=== PATIENT | female | born 1985 | race Caucasian/White ===

== ENCOUNTER 2018-08-30 15:06 | Inpatient (IN) | payer MEDICARE, SELFPAY ==
[~2018-08-30] VITALS: Ht 162.6 cm; Wt 139.1 kg
[2018-08-30] MEDS ORDERED: BUSP5TA PO (15:22)
[2018-08-30] MEDS ORDERED: PROG1CAP8 PO (15:22)
[2018-08-30] MEDS ORDERED: ARIS1064 IM (15:22)
[2018-08-30] MEDS ORDERED: LEXA1TAB PO (15:22)
[2018-08-30 15:44] LABS: HEMATOCRIT 19.1 % (36.0-47.0); MEAN CORPUSCULAR HGB CONC 29.8 g/dl (32.0-36.5); MEAN CORPUSCULAR VOLUME 83.8 fl (80.0-96.0); PLATELET COUNT, AUTOMATED 493 10^3/uL (150-450); RED BLOOD COUNT 2.28 10^6/uL (4.00-5.40); WHITE BLOOD COUNT 14.4 10^3/uL (4.0-10.0)
[2018-08-30 15:48] LABS: HEMOGLOBIN 5.7 g/dl (12.0-15.5)
[2018-08-30 16:10] LABS: ALBUMIN 3.2 GM/DL (3.2-5.2); ALT/SGPT 19 U/L (12-78); BILIRUBIN,TOTAL < 0.1 MG/DL (0.2-1.0); BLOOD UREA NITROGEN 7 MG/DL (7-18); CALCIUM LEVEL 8.4 MG/DL (8.5-10.1); CARBON DIOXIDE LEVEL 21 MEQ/L (21-32); CHLORIDE LEVEL 113 MEQ/L (98-107); GLOMERULAR FILTRATION RATE > 60.0 (>60); GLUCOSE, FASTING 106 MG/DL (70-100); SODIUM LEVEL 143 MEQ/L (136-145); TOTAL PROTEIN 6.3 GM/DL (6.4-8.2)
[2018-08-30] MEDS ORDERED: NS 1,000 ML IV ONE (16:15)
[2018-08-30 16:19] LABS: EOSINOPHILS 1 % (0-5); HCG, SERUM QUALITATIVE NEGATIVE (NEGATIVE); LYMPHOCYTES 35 % (16-52); MONOCYTES 1 % (0-8); NEUTROPHILS 60 % (35-75)
[2018-08-30] MEDS ORDERED: PROG-34 PO (16:20)
[2018-08-30 16:21] LABS: HYPOCHROMASIA 3+; MICROCYTOSIS 2+; PLATELET ESTIMATE NORMAL (NORMAL); POLYCHROMASIA 1+
[2018-08-30] MEDS ORDERED: ALLE12TA31 PO (16:22)
[2018-08-30] MEDS ORDERED: VITA-144 PO (16:22)
[2018-08-30] MEDS ORDERED: OYST1TAB PO (16:22)
[2018-08-30] MEDS ORDERED: MAGN400T2 PO (16:22)
--- NOTE | 2018-08-30 17:25 | REP ---
Portable chest x-ray: Single view. History: Near-syncope. No comparison views. Findings: The lungs are well inflated and clear. Pleural angles are sharp. EKG electrodes are seen. Pulmonary vasculature is not increased. No bony abnormality is appreciated. Impression: Negative portable chest x-ray. Electronically Signed by Wellington Valdez MD 08/31/2018 07:58 A
[2018-08-30] MEDS ORDERED: MOM 30ML SUSPENSION UDC PO PRN (17:30)
[2018-08-30 18:55] VITALS: BP 136/85
--- NOTE | 2018-08-30 20:56 | HPEPDOC ---
[facility] Medical History & Physical Date of Admission Aug 30, 2018 Date of Service: Aug 30, 2018 Attending Physician: CHRISTIN MONTENEGRO MD History and Physical CHIEF COMPLAINT: Dizziness HISTORY OF PRESENT ILLNESS: Mary is a 33-year-old female who presented to the emergency department today with a chief complaint of dizziness beginning at 1 PM. Patient was outside her home at the time and had to sit down. After 1.5 hours of sustained dizziness, she called EMS. Her dizziness has improved a little since presentation, but is still present. Rest, current blood transfusions, and liquid consumption have all helped her symptoms. Physical exertion and standing up from a seated or lying position exacerbate her symptoms. Patient has an accompanying headache located in the occiput and upper cervical region. She has had these symptoms since March 2018, during which time she has had daily vaginal bleeding with accompanying dizziness. She states that today's dizziness is the worst she has had. The daily vaginal bleeding soaks through a tampon and onto a pad. She states that she is not sexually active and is unsure of her last menstrual period due to daily bleeding since March. She has never previously been . In the emergency department, her vitals were stable and her orthostats were negative. CBC showed a hemoglobin of 5.7. She was evaluated by gynecology (Dr. Winston) in the ED, who recommended patient be hemodynamically stabilized and will follow-up with her on an outpatient basis for further evaluation. Then the hospitalist team was called for admission. PAST MEDICAL HISTORY: 1. Bipolar disorder. 2. Anxiety 3. GERD. PAST SURGICAL HISTORY: 1. Cholecystectomy 2011. 2. Tonsillectomy, 1994. SOCIAL HISTORY: Marital status: Single Resides in: [facility] area after recently moving from [place], [place] Children:, None Tobacco use: Cigarettes one pack a day for the last 4 years ETOH: None Illicit drug use: None FAMILY HISTORY: Siblings: Asthma, sister. Insulin-dependent diabetes mellitus, brother ALLERGIES: Please see below. REVIEW OF SYSTEMS: CONSTITUTIONAL: Endorses weakness, fatigue, fever and decreased appetite. Denies weight change, night sweats, chills or heat/cold intolerance. HEENT: Denies diplopia, blurry vision, hearing loss, tinnitus, rhinorrhea, sore throat. CARDIOVASCULAR:, Denies chest pain, chest pressure, palpitations prior to presentation, orthopnea. RESPIRATORY:, Endorses dyspnea on exertion. Denies cough GASTROINTESTINAL: Denies abdominal pain, nausea, vomiting, constipation, diarrhea or blood in the stool. GENITOURINARY:Denies dysuria, hematuria, increased urinary frequency. Gynecological: Endorses vaginal bleeding over the last 5 months and dysmenorrhea SKIN: Denies rashes MUSCULOSKELETAL: Denies decrease in muscle strength or bone pain. NEUROLOGICAL: Endorses numbness in fingers and toes bilaterally. PSYCHIATRIC: Denies recent issues with mood. HEMATOLOGIC/LYMPHATIC: Endorses recent easy bleeding. Denies easy bruising or family history of bleeding disorders HOME MEDICATIONS: Please see below. PHYSICAL EXAMINATION: VITAL SIGNS: Temperature 99.1, pulse, 98, respiratory rate 16, blood pressure 125/60, pulse oximetry 99% % on room air. GENERAL APPEARANCE: Calm, in no acute distress, sitting upright on bed. HEENT: Normocephalic, atraumatic. Patient wears eyeglasses for nearsightedness, PERRLA, EOMI nares patent. Poor dentition. Hirsutism of chin CARDIOVASCULAR:. Mildly tachycardic . Normal S1, S2, regular rhythm, no murmurs or rubs, No carotid bruits LUNGS: Clear to auscultation bilaterally, anteriorly and posteriorly, adequate air movement with no wheezing or rhonchi. ABDOMEN:. Abdominal striae present. Soft, nontender, nondistended. Bowel sounds present in all 4 quadrants MUSCULOSKELETAL: 5 out of 5 muscle strength testing upper extremity and lower extremity bilaterally. EXTREMITIES: Lower extremity pitting edema bilaterally, 2+ carotid, radial and posterior tibial pulses bilaterally. Hirsutism of lower extremities b/l NEUROLOGICAL:. Cranial nerves II through XII grossly intact. Sensation to light touch intact upper extremity and lower extremity bilaterally. PSYCHIATRIC: Appropriate mood and affect. LABORATORY DATA: See below. IMAGING: Portable chest x-ray: Negative portable chest x-ray MICROBIOLOGY: Please see below. ASSESSMENT: 33-year-old female with pertinent past medical history of vaginal bleeding for the past 5 months presented today for dizziness. She will be admitted and managed for the following problems 1. Symptomatic acute blood loss anemia likely secondary to vaginal bleeding. -Gynecology (Dr. Winston) saw patient in ED and once she is hemodynamically stable Dr. Winston will follow-up on an outpatient basis Patient had a hemoglobin of 5.7, and was subsequently given 2 units of blood. After 2 units are completely transfused, we will recheck hemoglobin. 2. Bipolar disorder -Continue with outpatient medication of aristada and Lexapro 3. Anxiety -Continue with outpatient medication of buspirone 4. GERD -Continue with outpatient medication of omeprazole I saw and evaluated the patient. I agree with the findings and plan of care as documented in the above note Vital Signs Vital Signs Date Time Temp Pulse Resp B/P (MAP) Pulse Ox O2 Delivery O2 Flow Rate FiO2 08/30/18 18:50 99.1 08/30/18 18:39 16 125/60 (81) 08/30/18 18:30 98 99 08/30/18 18:00 Room Air Laboratory Data Labs 24H Laboratory Tests 2 08/30/18 15:36: Nucleated Red Blood Cells % (auto) 0.4H, Neutrophils 60, Band Neutrophils 3, Lymphocytes (Manual) 35, Monocytes (Manual) 1, Eosinophils (Manual) 1, Platelet Estimate NORMAL, Polychromasia 1+, Hypochromasia 3+, Microcytosis 2+, Anion Gap 9, Glomerular Filtration Rate > 60.0, Blood Urea Nitrogen 7, Creatinine 0.70, Sodium Level 143, Potassium Level 4.0, Chloride Level 113H, Carbon Dioxide Level 21, Calcium Level 8.4L, Aspartate Amino Transf (AST/SGOT) 15, Alanine Aminotransferase (ALT/SGPT) 19, Alkaline Phosphatase 67, Total Bilirubin < 0.1L, Total Protein 6.3L, Albumin 3.2, Albumin/Globulin Ratio 1.03, Human Chorionic Gonadotropin, Qual NEGATIVE CBC/BMP Laboratory Tests 08/30/18 15:36 Red Blood Count 2.28 L, Mean Corpuscular Volume 83.8, Mean Corpuscular Hemoglobin 25.0 L, Mean Corpuscular Hemoglobin Concent 29.8 L, Red Cell Distribution Width 15.6 H, Calcium Level 8.4 L, Aspartate Amino Transf (AST/SG OT) 15, Alanine Aminotransferase (ALT/SGPT) 19, Alkaline Phosphatase 67, Total Bilirubin < 0.1 L, Total Protein 6.3 L, Albumin 3.2 Home Medications Scheduled Aripiprazole Lauroxil (Aristada) 1,064 Mg/3.9 Ml Suser.syr, 3.9 ML IM [id number] Buspirone HCl (Buspirone HCl) 5 Mg Tablet, 5 MG PO BID Calcium Carbonate (Calcium) 500 Mg Tablet, 500 MG PO QHS Cholecalciferol (Vitamin D3) (Vitamin D3) 1,000 Unit Tablet, 2,000 UNIT PO QHS Escitalopram Oxalate (Lexapro) 10 Mg Tablet, 10 MG PO DAILY Ferrous Sulfate (Ferrous Sulfate) 325 Mg Tablet, 325 MG PO BID Magnesium Oxide (Magnesium Oxide) 400 Mg Tablet, 400 MG PO QHS [Progesterone] , 10 MG PO QPM PATIENT STATES THAT SHE TAKES PROGESTERONE 10MG WITH DINNER. [facility] DOES NOT HAVE A HISTORY OF THIS BEING FILLED. Scheduled PRN Fexofenadine/Pseudoephedrine (Lala-D 12 Hour Tablet) 1 Each Tab.er.12h, 1 TAB PO BID PRN for CONGESTION Allergies Coded Allergies: No Known Allergies (Unverified , 08/30/18) MELISSA RUVALCABA PGY-1 Aug 30, 2018 20:50 CHRISTIN MONTENEGRO MD Sep 01, 2018 11:08
[2018-08-30 21:33] LABS: INR 1.12; PROTHROMBIN TIME 14.1 SECONDS (11.8-14.0)
[2018-08-30 21:34] LABS: PARTIAL THROMBOPLASTIN TIME 27.6 SECONDS (25.0-38.4)
[2018-08-30] MEDS: MAGNESIUM OXIDE 400 MG TAB (MAG-OX) PO SCH (22:09)
[2018-08-30] MEDS: OYSTER SHELL CALCIUM 500 MG TAB PO SCH (22:09)
[2018-08-30] MEDS: VITAMIN D 1,000 INTERNATIONAL UNITS TABLET PO SCH (22:09)
[2018-08-30] MEDS: busPIRone 5 MG TAB PO SCH (22:09)
[2018-08-30] MEDS: ACETAMINOPHEN TAB 650MG DOSE (2X325MG) PO PRN (22:10)
[2018-08-31 03:12] LABS: HEMATOCRIT 21.7 % (36.0-47.0)
[2018-08-31 03:16] LABS: HEMOGLOBIN 6.8 g/dl (12.0-15.5)
[2018-08-31 06:00] VITALS: BP 131/74
[2018-08-31 06:50] VITALS: BP_SYST 117; BP_SYST 134; BP_SYST 145; BP_DIAS 63; BP_DIAS 84; BP_DIAS 89
--- NOTE | 2018-08-31 07:41 | ECGEPIP ---
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
[2018-08-31] MEDS: ESCITALOPRAM OXALATE 10 MG TAB (LEXAPRO) PO SCH (08:04)
[2018-08-31] MEDS: busPIRone 5 MG TAB PO SCH ×2 (08:04→22:14)
[2018-08-31] MEDS: ACETAMINOPHEN TAB 650MG DOSE (2X325MG) PO PRN (08:05)
[2018-08-31 13:57] VITALS: BP_SYST 133; BP_SYST 165; BP_DIAS 76; BP_DIAS 80
[2018-08-31 14:00] VITALS: BP 161/86
[2018-08-31 14:29] LABS: HEMATOCRIT 26.3 % (36.0-47.0); HEMOGLOBIN 8.2 g/dl (12.0-15.5); MEAN CORPUSCULAR HEMOGLOBIN 26.6 pg (27.0-33.0); MEAN CORPUSCULAR HGB CONC 31.2 g/dl (32.0-36.5); MEAN CORPUSCULAR VOLUME 85.4 fl (80.0-96.0); PLATELET COUNT, AUTOMATED 443 10^3/uL (150-450); RED BLOOD COUNT 3.08 10^6/uL (4.00-5.40); WHITE BLOOD COUNT 13.8 10^3/uL (4.0-10.0)
[2018-08-31 15:00] LABS: BLOOD UREA NITROGEN 5 MG/DL (7-18); CALCIUM LEVEL 8.8 MG/DL (8.5-10.1); CARBON DIOXIDE LEVEL 23 MEQ/L (21-32); CHLORIDE LEVEL 112 MEQ/L (98-107); CREATININE FOR GFR 0.76 MG/DL (0.55-1.30); GLOMERULAR FILTRATION RATE > 60.0 (>60); GLUCOSE, FASTING 103 MG/DL (70-100); POTASSIUM SERUM 4.2 MEQ/L (3.5-5.1); SODIUM LEVEL 141 MEQ/L (136-145)
[2018-08-31] MEDS: IBUPROFEN 400 MG TAB PO PRN (16:21)
--- NOTE | 2018-08-31 21:07 | IPNPDOC ---
Subjective Date Seen The patient was seen on 08/31/18 at 9:50. Subjective Chief Complaint/HPI [place] is a 33-year-old female who presented to the emergency department yesterday with a chief complaint of dizziness. Patient was outside her home at the time and had to sit down. After 1.5 hours of sustained dizziness, she called EMS. Rest, current blood transfusions, and liquid consumption all helped her symptoms. Physical exertion and standing up from a seated or lying position exacerbated her symptoms. She has had daily vaginal bleeding with accompanying dizziness since March 2018. She states that she is not sexually active and is unsure of her last menstrual period due to daily bleeding since March. She has never previously been . In the emergency department, her vitals were stable and her orthostats were negative. CBC showed a hemoglobin of 5.7. She was evaluated by gynecology (Dr. Winston) in the ED, who recommended patient be hemodynamically stabilized and will follow-up with her on an outpatient basis for further evaluation. Then the hospitalist team was called for admission. [place] was seen and examined this morning while lying upright in her bed. She states that her dizziness and overall energy are much improved from yesterday. Her headache from yesterday has resolved. She is still experiencing vaginal bleeding that soaks through a tampon and onto a pad. After 2 blood transfusions yesterday, her hemoglobin improved to 6.8. This value remains too low and 2 more units are to be transfused today a subsequent hemoglobin will be then measured. She is currently tolerating both solids and liquids. Constitutional: Denies: Chills, Fever Pulmonary: Reports: Dyspnea (very mild and only with ambulation); Denies: Cough Cardiovascular: Denies: Chest Pain, Palpitations Gastrointestinal: Denies: Nausea, Vomiting, Abdominal Pain Genitourinary: Denies: Dysuria, Frequency, Hematuria Objective Physical Examination General Exam: Positive: Alert, Cooperative, No Acute Distress Neck Exam: Positive: Supple, +2 carotid pulse wo bruit, Other (Hirsutism of chin) Chest Exam: Positive: Clear to auscultation; Negative: Rhonchi, Wheezing Heart Exam: Positive: Regular Rhythm, Normal S1, Normal S2; Negative: Murmurs, Rubs Abdomen Exam: Positive: Normal bowel sounds, Soft, Other (Nondistended; No guarding); Negative: Tenderness Extremity Exam: Positive: Edema (pitting bilateral lower extremities), Other (hirsutism of bilateral lower extremities); Negative: Tenderness Neuro Exam: Positive: Normal Speech, Strength at 5/5 X4 ext Psych Exam: Positive: Mental status NL, Mood NL, Oriented x 3 Assessment /Plan Assessment 1. Symptomatic acute blood loss anemia likely secondary to vaginal bleeding. -Gynecology (Dr. Winston) saw patient in ED and once she is hemodynamically stable, Dr. Winston will follow-up on an outpatient basis Patient had a hemoglobin of 6.8 after receiving 2 units of blood last evening. This value remains critically low and therefore 2 more units of blood were ordered to be given this morning. A follow-up hemoglobin will be measured after this morning's infusions are given to ascertain status of her anemia. 2. Bipolar disorder -Continue with outpatient medication of aristada and Lexapro 3. Anxiety -Continue with outpatient medication of buspirone 4. GERD -Continue with outpatient medication of omeprazole I saw and evaluated the patient. I agree with the findings and plan of care as documented in the above note Plan/VTE VTE Prophylaxis Ordered?: Yes VS, I&O, 24H, Fishbone Vital Signs/I&O Vital Signs Date Time Temp Pulse Resp B/P (MAP) Pulse Ox O2 Delivery O2 Flow Rate FiO2 08/31/18 14:00 98.4 91 17 161/86 (111) 99 08/31/18 13:14 Room Air I&O- Last 24 Hours up to 6 AM 08/31/18 06:00 Intake Total 1423 ml Output Total 700 ml Balance 723 ml Laboratory Data 24H LABS Laboratory Tests 2 08/31/18 14:08: Nucleated Red Blood Cells % (auto) 0.2H, Anion Gap 6L, Glomerular Filtration Rate > 60.0, Blood Urea Nitrogen 5L, Creatinine 0.76, Sodium Level 141, Potassium Level 4.2, Chloride Level 112H, Carbon Dioxide Level 23, Calcium Level 8.8 CBC/BMP Laboratory Tests 08/31/18 03:06 08/31/18 14:08 Red Blood Count 3.08 L, Mean Corpuscular Volume 85.4, Mean Corpuscular Hemoglobin 26.6 L, Mean Corpuscular Hemoglobin Concent 31.2 L, Red Cell Distribution Width 14.9 H, Calcium Level 8.8 MELISSA RUVALCABA PGY-1 Aug 31, 2018 21:07 CHRISTIN MONTENEGRO MD Sep 01, 2018 15:02
[2018-08-31 22:00] VITALS: BP 137/70
[2018-08-31 22:01] VITALS: BP 134/78
[2018-08-31] MEDS: OYSTER SHELL CALCIUM 500 MG TAB PO SCH (22:14)
[2018-08-31] MEDS: VITAMIN D 1,000 INTERNATIONAL UNITS TABLET PO SCH (22:15)
[2018-08-31] MEDS: MAGNESIUM OXIDE 400 MG TAB (MAG-OX) PO SCH (22:16)
[2018-08-31] MEDS: FERROUS SULFATE 325MG TAB PO SCH (22:18)
[2018-09-01] MEDS: IBUPROFEN 400 MG TAB PO PRN ×2 (05:05→10:59)
[2018-09-01 06:00] VITALS: BP 140/80
[2018-09-01 06:27] LABS: HEMATOCRIT 25.3 % (36.0-47.0); MEAN CORPUSCULAR HEMOGLOBIN 26.8 pg (27.0-33.0); MEAN CORPUSCULAR HGB CONC 31.6 g/dl (32.0-36.5); MEAN CORPUSCULAR VOLUME 84.9 fl (80.0-96.0); PLATELET COUNT, AUTOMATED 422 10^3/uL (150-450); RED BLOOD COUNT 2.98 10^6/uL (4.00-5.40); WHITE BLOOD COUNT 12.7 10^3/uL (4.0-10.0)
[2018-09-01 06:59] LABS: BLOOD UREA NITROGEN 6 MG/DL (7-18); CALCIUM LEVEL 8.7 MG/DL (8.5-10.1); CARBON DIOXIDE LEVEL 25 MEQ/L (21-32); CHLORIDE LEVEL 112 MEQ/L (98-107); GLOMERULAR FILTRATION RATE > 60.0 (>60); GLUCOSE, FASTING 105 MG/DL (70-100); POTASSIUM SERUM 3.9 MEQ/L (3.5-5.1); SODIUM LEVEL 141 MEQ/L (136-145)
[2018-09-01] MEDS: ESCITALOPRAM OXALATE 10 MG TAB (LEXAPRO) PO SCH (08:56)
[2018-09-01] MEDS: FERROUS SULFATE 325MG TAB PO SCH (08:56)
[2018-09-01] MEDS: busPIRone 5 MG TAB PO SCH (08:56)
[2018-09-01] MEDS ORDERED: FERR325T18 PO (10:34)
--- NOTE | 2018-09-01 21:22 | DS.PDOC ---
Discharge Summary General Date of Admission Aug 30, 2018 at 16:57 Date of Discharge 09/01/2018 Attending Physician: CHRISTIN MONTENEGRO MD Discharge Summary PROCEDURES PERFORMED DURING STAY: Four (4) total blood transfusions of packed red blood cells- 2 delivered on the evening of 08/30, with the other 2 delivered on the morning of 08/31. ADMITTING DIAGNOSES: 1. Dizziness DISCHARGE DIAGNOSES: 1. Symptomatic acute blood loss anemia likely secondary to vaginal bleeding 2. Bipolar disorder 3. Anxiety 4. GERD COMPLICATIONS/CHIEF COMPLAINT: Symptomatic Anemia. HISTORY OF PRESENT ILLNESS: Mary is a 33-year-old female who presented to the emergency department on 08/30/2018 with the chief complaint of dizziness beginning at 1 PM. Patient was outside her home at the time and had to sit down. After 1.5 hours of sustained dizziness, she called EMS. Her dizziness has improved a little after presentation, but is still present. Rest, current blood transfusions, and liquid consumption all helped her symptoms. Physical exertion and standing up from a seated or lying position exacerbate her symptoms. Patient has an accompanying headache located in the occiput and upper cervical region. She has had these symptoms since March 2018, during which time she has had daily vaginal bleeding with accompanying dizziness. She states that today's dizziness is the worst she has had. The daily vaginal bleeding soaks through a tampon and onto a pad. She states that she is not sexually active and is unsure of her last menstrual period due to daily bleeding since March. She has never previously been . In the emergency department, her vitals were stable and her orthostats were negative. CBC showed a hemoglobin of 5.7. She was evaluated by gynecology (Dr. Winston) in the ED, who recommended patient be hemodynamically stabilized and will follow-up with her on an outpatient basis for further evaluation. Then the hospitalist team was called for admission. HOSPITAL COURSE: Patient was admitted under the care of the hospitalist team with the goal of improving her acute normocytic anemia, stabilizing her symptoms and continuing to provide supportive care. As a younger patient with no history of cardiac issues, the goal of the hospitalist team in treating her anemia was to increase her hemoglobin to a value of 7. After receiving the 2 blood transfusions ordered by the ED, the patient's hemoglobin was subsequently rechecked and improved to 6.8. On the morning of 08/31, 2 more units of blood were transfused, the patient's hemoglobin was subsequently rechecked and now measured 8.2. The patient's vaginal bleeding remained consistent over approximately the first 12 hours post-admission, soaking through a tampon and onto an underlying pad. After the initial 12 hours post-admission, the amount of the patient's vaginal bleeding began to steadily decrease, not completely soaking through a tampon and not spreading to the pad. Over the course of the patient's hospital stay, her accompanying symptoms of headache, dizziness/lightheadedness, and overall energy level resolved. With the patient's hemoglobin now above the hospitalist teams goal of 7, and her symptoms largely resolved, she was deemed stable enough for discharge on 09/01. DISCHARGE MEDICATIONS: Please see below. ALLERGIES: Please see below. PHYSICAL EXAMINATION ON DISCHARGE: VITAL SIGNS: Please see below. General Exam: Positive: Alert, Cooperative, No Acute Distress Neck Exam: Positive: Supple, +2 carotid pulse wo bruit, Other (Hirsutism of chin) Chest Exam: Positive: Clear to auscultation; Negative: Rhonchi, Wheezing Heart Exam: Positive: Regular Rhythm, Normal S1, Normal S2; Negative: Murmurs, Rubs Abdomen Exam: Positive: Normal bowel sounds, Soft, Other (Nondistended; No guarding); Negative: Tenderness Extremity Exam: Positive: Edema (pitting bilateral lower extremities), Other (hirsutism of bilateral lower extremities); Negative: Tenderness Neuro Exam: Positive: Normal Speech, Strength at 5/5 X4 ext Psych Exam: Positive: Mental status NL, Mood NL, Oriented x 3 LABORATORY DATA: Please see below. IMAGING: Single view, portable chest x-ray on 08/30 was unremarkable. PROGNOSIS: Good ACTIVITY: As tolerated. DIET: Maintain adequate hydration and focus on a meal regimen consisting of lean protein, leafy green vegetables, and fruits DISPOSITION: 01 Home, Self-Care. DISCHARGE INSTRUCTIONS: 1. Patient is to follow-up with Dr. Winston, gynecology, to have her vaginal bleeding thoroughly worked up and treated. 2. Patient is to establish with a PCP as well, as she has just moved to the area and is lacking one 3. Patient is advised to return to the hospital in the event of a medical emergency DISCHARGE CONDITION: Stable. I saw and evaluated the patient. I agree with the findings and plan of care as documented in the documenters note. I spent 45 minutes coordinating this patient's discharge. Vital Signs/I&Os Vital Signs Date Time Temp Pulse Resp B/P (MAP) Pulse Ox O2 Delivery O2 Flow Rate FiO2 09/01/18 06:00 97.9 98 16 140/80 (100) 98 08/31/18 13:14 Room Air I&O- Last 24 Hours up to 6 AM 09/01/18 06:00 Intake Total 1555 ml Output Total 0 ml Balance 1555 ml Laboratory Data Labs 24H Laboratory Tests 2 09/01/18 06:04: Nucleated Red Blood Cells % (auto) 0.2H, Anion Gap 4L, Glomerular Filtration Rate > 60.0, Blood Urea Nitrogen 6L, Creatinine 0.70, Sodium Level 141, Potassium Level 3.9, Chloride Level 112H, Carbon Dioxide Level 25, Calcium Level 8.7 CBC/BMP Laboratory Tests 09/01/18 06:04 Red Blood Count 2.98 L, Mean Corpuscular Volume 84.9, Mean Corpuscular Hemoglobin 26.8 L, Mean Corpuscular Hemoglobin Concent 31.6 L, Red Cell Distribution Width 15.5 H, Calcium Level 8.7 Discharge Medications Scheduled Aripiprazole Lauroxil (Aristada) 1,064 Mg/3.9 Ml Suser.syr, 3.9 ML IM [id number], (Reported) Buspirone HCl (Buspirone HCl) 5 Mg Tablet, 5 MG PO BID, (Reported) Calcium Carbonate (Calcium) 500 Mg Tablet, 500 MG PO QHS, (Reported) Cholecalciferol (Vitamin D3) (Vitamin D3) 1,000 Unit Tablet, 2,000 UNIT PO QHS, (Reported) Escitalopram Oxalate (Lexapro) 10 Mg Tablet, 10 MG PO DAILY, (Reported) Ferrous Sulfate (Ferrous Sulfate) 325 Mg Tablet, 325 MG PO BID Magnesium Oxide (Magnesium Oxide) 400 Mg Tablet, 400 MG PO QHS, (Reported) [Progesterone] , 10 MG PO QPM, (Reported) PATIENT STATES THAT SHE TAKES PROGESTERONE 10MG WITH DINNER. [facility] DOES NOT HAVE A HISTORY OF THIS BEING FILLED. Scheduled PRN Fexofenadine/Pseudoephedrine (Lala-D 12 Hour Tablet) 1 Each Tab.er.12h, 1 TAB PO BID PRN for CONGESTION, (Reported) Allergies Coded Allergies: No Known Allergies (Unverified , 08/30/18) MELISSA RUVALCABA PGY-1 Sep 01, 2018 14:23 CHRISTIN MONTENEGRO MD Sep 13, 2018 15:37
== END 2018-09-01 12:58 | disposition home or self-care (01) | DRG 812 ==
LOC: M ED 15:06 → EDBD 15:06 → M ED INP 16:57 → M MSPAV 18:55
PROVIDERS: ADMIT Internal Medicine; ATTEND Internal Medicine
PROC: 30233N1 Transfusion of Nonautologous Red Blood Cells into Peripheral Vein, Percutaneous Approach (ICD-10-PCS; principal; 2018-08-30)
DX: D62 Acute posthemorrhagic anemia (principal); N93.9 Abnormal uterine and vaginal bleeding, unspecified; F31.9 Bipolar disorder, unspecified; F41.9 Anxiety disorder, unspecified; K21.9 Gastro-esophageal reflux disease without esophagitis; Z79.899 Other long term (current) drug therapy; F17.210 Nicotine dependence, cigarettes, uncomplicated

== ENCOUNTER 2020-07-29 14:14 | Emergency (ER) | payer MEDICARE ==
[~2020-07-29] VITALS: Ht 162.6 cm; Wt 163.0 kg
[~2020-07-29 14:14] MED LIST: ALLE12TA31 PO; ARIS1064 IM; BUSP5TA PO; FERR325T18 PO; LEXA1TAB PO; MAGN400T2 PO; OYST1TAB PO; PROG-34 PO; PROG1CAP8 PO; VITA-144 PO
[2020-07-29 18:03] LABS: BASO # 0.1 10^3/uL (0.0-0.2); BASO % 0.5 % (0.0-1.0); EOS # 0.2 10^3/uL (0.0-0.5); EOS % 1.2 % (0.0-3.0); HEMATOCRIT 36.5 % (36.0-47.0); HEMOGLOBIN 11.3 g/dl (12.0-15.5); LYMPH % 26.6 % (24.0-44.0); MEAN CORPUSCULAR VOLUME 83.9 fl (80.0-96.0); MONO # 0.7 10^3/uL (0.0-0.8); MONO % 4.7 % (2.0-8.0); NEUTROPHILS # 9.8 10^3/uL (1.5-8.5); PLATELET COUNT, AUTOMATED 428 10^3/uL (150-450); RED BLOOD COUNT 4.35 10^6/uL (4.00-5.40); WHITE BLOOD COUNT 14.9 10^3/uL (4.0-10.0)
[2020-07-29 18:17] LABS: BLOOD UREA NITROGEN 7 MG/DL (7-18); CALCIUM LEVEL 9.5 MG/DL (8.5-10.1); CARBON DIOXIDE LEVEL 24 MEQ/L (21-32); CHLORIDE LEVEL 106 MEQ/L (98-107); CREATININE FOR GFR 0.62 MG/DL (0.55-1.30); GLOMERULAR FILTRATION RATE > 60.0 (>60); GLUCOSE, FASTING 132 MG/DL (70-100); POTASSIUM SERUM 4.3 MEQ/L (3.5-5.1); SODIUM LEVEL 137 MEQ/L (136-145)
[2020-07-29] MEDS ORDERED: MECLIZINE 25 MG TABLET PO ONE (19:10)
[2020-07-29 19:51] LABS: VENOUS BASE EXCESS -3.2 (-2.0-2.0); VENOUS HCO3 21.7 MEQ/L (23.0-27.0); VENOUS O2 SATURATION 85.8 % (60.0-80.0); VENOUS PARTIAL PRESSURE CO2 38.8 mmHg (38.0-50.0); VENOUS PARTIAL PRESSURE O2 54.1 mmHg (30.0-50.0); VENOUS PH 7.366 UNITS (7.330-7.430); VENOUS STANDARD HCO3 21.5 MEQ/L; VENOUS TOTAL CO2 22.9 MEQ/L (24.0-28.0)
--- NOTE | 2020-07-29 20:01 | REPVR ---
PROCEDURE INFORMATION: Exam: CT Head Without Contrast Exam date and time: 07/29/2020 7:16 PM Age: 35 years old Clinical indication: Other: Dizziness, weakness TECHNIQUE: Imaging protocol: Computed tomography of the head without contrast. Radiation optimization: All CT scans at this facility use at least one of these dose optimization techniques: automated exposure control; mA and/or kV adjustment per patient size (includes targeted exams where dose is matched to clinical indication); or iterative reconstruction. COMPARISON: No relevant prior studies available. FINDINGS: Brain: Normal. No hemorrhage. Unremarkable white matter. No mass effect. Cerebral ventricles: No ventriculomegaly. Paranasal sinuses: Visualized sinuses are unremarkable. No fluid levels. Mastoid air cells: Visualized mastoid air cells are well aerated. Bones/joints: There is hyperostosis frontalis interna. Soft tissues: Unremarkable. IMPRESSION: No acute intracranial findings. Electronically signed by: Ihsan Bynum On 07/29/2020 20:01:00 PM
[2020-07-29 20:09] LABS: HEMOGLOBIN A1c 6.2 %
--- NOTE | 2020-07-29 20:46 | REPVR ---
PROCEDURE INFORMATION: Exam: XR Chest Exam date and time: 07/29/2020 7:58 PM Age: 35 years old Clinical indication: Other: Weakness; Additional info: Weakness, elev wbc TECHNIQUE: Imaging protocol: XR of the chest. Views: 2 views. COMPARISON: [facility], 1 view 08/30/2018 4:30 PM FINDINGS: Lungs: Unremarkable. No consolidation. Pleural spaces: Unremarkable. No pleural effusion. No pneumothorax. Heart/Mediastinum: Unremarkable. No cardiomegaly. Bones/joints: Unremarkable. IMPRESSION: No acute findings. Electronically signed by: Ihsan Bynum On 07/29/2020 20:46:10 PM
[2020-07-29 21:01] LABS: ACETONE/KETONE 0.96 MG/DL (<2.81); C REACTIVE PROTEIN QUANTITATIV 1.95 MG/DL (0.00-0.30); FREE THYROXINE INDEX 2.9 % (1.3-4.8); THYROID STIMULATING HORMONE 1.86 uIU/ML (0.358-3.740); THYROXINE (T4) 11.3 UG/DL (4.5-12.0)
[2020-07-29 22:42] VITALS: BP 143/82
--- NOTE | 2020-07-30 19:41 | ECGEPIP ---
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
== END 2020-07-29 22:45 | disposition home or self-care (01) ==
LOC: M ED 14:14
DX: R42 Dizziness and giddiness (principal); R53.83 Other fatigue; D72.828 Other elevated white blood cell count; N92.6 Irregular menstruation, unspecified; E66.01 Morbid (severe) obesity due to excess calories; Z68.44 Body mass index [BMI] 60.0-69.9, adult; R51.9 Headache, unspecified; Z87.440 Personal history of urinary (tract) infections; F17.200 Nicotine dependence, unspecified, uncomplicated; Z91.040 Latex allergy status; Z79.899 Other long term (current) drug therapy

== ENCOUNTER 2022-02-03 09:32 | Emergency (ER) | payer MEDICARE, MEDICAID ==
[~2022-02-03] VITALS: Ht 162.6 cm; Wt 156.8 kg
[2022-02-03 10:06] LABS: BASO # 0.1 10^3/uL (0.0-0.2); BASO % 0.6 % (0.0-1.0); EOS # 0.2 10^3/uL (0.0-0.5); EOS % 1.3 % (0.0-3.0); HEMATOCRIT 36.2 % (36.0-47.0); HEMOGLOBIN 11.4 g/dl (12.0-15.5); LYMPH # 3.9 10^3/uL (1.5-5.0); LYMPH % 30.9 % (24.0-44.0); MEAN CORPUSCULAR HEMOGLOBIN 26.8 pg (27.0-33.0); MEAN CORPUSCULAR HGB CONC 31.5 g/dl (32.0-36.5); MEAN CORPUSCULAR VOLUME 85.2 fl (80.0-96.0); MONO # 0.7 10^3/uL (0.0-0.8); MONO % 5.5 % (2.0-8.0); NEUTROPHILS # 7.7 10^3/uL (1.5-8.5); NEUTROPHILS % 61.1 % (36.0-66.0); PLATELET COUNT, AUTOMATED 394 10^3/uL (150-450); RED BLOOD COUNT 4.25 10^6/uL (4.00-5.40); WHITE BLOOD COUNT 12.6 10^3/uL (4.0-10.0)
[2022-02-03 10:22] LABS: HCG, SERUM QUALITATIVE NEGATIVE (NEGATIVE)
[2022-02-03 10:30] LABS: LIPASE 38 U/L (12-53)
[2022-02-03 10:32] LABS: ALBUMIN 3.1 G/DL (3.2-5.2); ALKALINE PHOSPHATASE 105 U/L (46-116); ALT/SGPT 49 U/L (7.0-40); AST/SGOT 65 U/L (<34); BILIRUBIN,DIRECT < 0.1 MG/DL (<0.4); BILIRUBIN,TOTAL 0.3 MG/DL (0.3-1.2); TOTAL PROTEIN 6.9 G/DL (5.7-8.2)
[2022-02-03 10:33] LABS: THYROXINE (T4) 16.7 UG/DL (4.5-10.9)
[2022-02-03 10:34] LABS: THYROID STIMULATING HORMONE 2.168 uIU/ML (0.55-4.78)
[2022-02-03 10:35] LABS: T UPTAKE 23.8 % (22.5-37.0)
[2022-02-03 10:46] LABS: CK-MB VALUE MASS < 1.0 NG/ML (<3.6)
[2022-02-03 10:50] LABS: CPK CREATINE PHOSPHOKINASE 104 U/L (34-145); MB/CK RELATIVE INDEX 0.96 (< OR =4)
[2022-02-03 11:39] LABS: CK-MB VALUE MASS < 1.0 NG/ML (<3.6)
[2022-02-03 11:41] LABS: BLOOD UREA NITROGEN 9 MG/DL (9-23); CALCIUM LEVEL 8.8 MG/DL (8.5-10.1); CARBON DIOXIDE LEVEL 26 MMOL/L (20-31); CHLORIDE LEVEL 104 MMOL/L (98-107); CPK CREATINE PHOSPHOKINASE 101 U/L (34-145); CREATININE FOR GFR 0.54 MG/DL (0.55-1.30); GLOMERULAR FILTRATION RATE > 60.0 (>60); GLUCOSE, FASTING 207 MG/DL (60-100); MB/CK RELATIVE INDEX 0.99 (< OR =4); POTASSIUM SERUM 4.4 MMOL/L (3.5-5.1); SODIUM LEVEL 137 MMOL/L (136-145)
[2022-02-03 11:48] LABS: AMPHETAMINES LEVEL URINE NEGATIVE (NEGATIVE); BARBITURATES URINE NEGATIVE (NEGATIVE); BENZODIAZEPINES URINE NEGATIVE (NEGATIVE)
[2022-02-03 11:49] LABS: CANNABINOIDS URINE NEGATIVE (NEGATIVE); COCAINE METABOLITE URINE NEGATIVE (NEGATIVE); METHADONE URINE NEGATIVE (NEGATIVE); OPIATES URINE NEGATIVE (NEGATIVE); PHENCYCLIDINE URINE NEGATIVE (NEGATIVE)
[2022-02-03] MEDS ORDERED: ISOVUE-370 76% 100ML VIAL As Ordered ONE (12:57)
[2022-02-03 14:01] VITALS: BP 146/81
== END 2022-02-03 14:21 | disposition home or self-care (01) ==
LOC: M ED 09:32
DX: R00.2 Palpitations (principal); R73.09 Other abnormal glucose; R00.0 Tachycardia, unspecified; I45.10 Unspecified right bundle-branch block; K21.9 Gastro-esophageal reflux disease without esophagitis; G43.909 Migraine, unspecified, not intractable, without status migrainosus; Z91.040 Latex allergy status; Z79.899 Other long term (current) drug therapy
CPT/HCPCS: 36415; 71275; 80047; 80048; 80076; 80307; 82550; 82553; 83036; 83690; 84436; 84443; 84479; 84484; 84703; 85025; 93005; 93041; 93970; 94760; 99285; Q9967

== ENCOUNTER → 2022-03-21 | Outpatient (CLI) | payer MEDICARE, MEDICAID ==
[~2022-03-21] MED LIST changes: +BUPR75TA5 PO; +METF500T13 PO; +NORE0.353 PO; +VITA100093 PO
== END ==
LOC: M LABSMTC 11:14
PROVIDERS: ATTEND Anesthesiology
DX: Z01.812 Encounter for preprocedural laboratory examination (principal); Z11.52 Encounter for screening for COVID-19

== ENCOUNTER 2022-03-23 09:42 | Day surgery (SDC) | payer MEDICARE, MEDICAID ==
[~2022-03-23] VITALS: Ht 162.6 cm; Wt 157.8 kg
[2022-03-23] MEDS ORDERED: LIDOCAINE 2% 100MG/5ML SDV (FOR ANES.) As Ordered ONE (10:58)
[2022-03-23] MEDS ORDERED: fentaNYL 100 MCG/2 ML INJECTION As Ordered ONE (10:58)
[2022-03-23] MEDS ORDERED: propofoL 500 MG/50 ML VIAL As Ordered ONE (10:58)
[2022-03-23 12:30] VITALS: BP 142/82
== END 2022-03-23 16:17 | disposition home or self-care (01) ==
LOC: M OPP 09:42
PROVIDERS: ATTEND Internal Medicine Gastroenterology
DX: K64.4 Residual hemorrhoidal skin tags (principal); Q43.8 Other specified congenital malformations of intestine; D50.9 Iron deficiency anemia, unspecified; K22.89 Other specified disease of esophagus; Z79.3 Long term (current) use of hormonal contraceptives; Z79.84 Long term (current) use of oral hypoglycemic drugs; Z79.899 Other long term (current) drug therapy; Z88.6 Allergy status to analgesic agent; Z91.030 Bee allergy status; Z91.040 Latex allergy status; Z91.048 Other nonmedicinal substance allergy status; I10 Essential (primary) hypertension; R73.03 Prediabetes; Z82.69 Family history of other diseases of the musculoskeletal system and connective tissue

== ENCOUNTER → 2022-03-31 | Outpatient (REF) | payer MEDICARE ==
[~2022-03-31] MED LIST changes: +MEDR5TAB3 PO; +MULT1TAB16 PO
[2022-03-31 17:43] LABS: ALBUMIN 3.5 G/DL (3.2-5.2); ALKALINE PHOSPHATASE 86 U/L (46-116); ALT/SGPT 32 U/L (7.0-40); AST/SGOT 33 U/L (<34); BILIRUBIN,TOTAL 0.2 MG/DL (0.3-1.2); BLOOD UREA NITROGEN 13 MG/DL (9-23); CALCIUM LEVEL 9.3 MG/DL (8.5-10.1); CARBON DIOXIDE LEVEL 21 MMOL/L (20-31); CHLORIDE LEVEL 104 MMOL/L (98-107); CREATININE FOR GFR 0.64 MG/DL (0.55-1.30); GLOMERULAR FILTRATION RATE > 60.0 (>60); GLUCOSE, FASTING 141 MG/DL (60-100); POTASSIUM SERUM 4.7 MMOL/L (3.5-5.1); SODIUM LEVEL 135 MMOL/L (136-145); TOTAL PROTEIN 6.7 G/DL (5.7-8.2)
[2022-03-31 18:24] LABS: HEMOGLOBIN A1c 6.1 % (4.0-6.0)
== END ==
LOC: M LAB REF 16:38
PROVIDERS: ATTEND Nurse Practitioner Family
DX: E11.9 Type 2 diabetes mellitus without complications (principal)

== ENCOUNTER → 2022-04-20 | Outpatient (REF) | payer MEDICARE ==
[2022-04-20 16:25] LABS: HEMATOCRIT 35.4 % (36.0-47.0); HEMOGLOBIN 10.4 g/dl (12.0-15.5); MEAN CORPUSCULAR HEMOGLOBIN 24.6 pg (27.0-33.0); MEAN CORPUSCULAR HGB CONC 29.4 g/dl (32.0-36.5); MEAN CORPUSCULAR VOLUME 83.9 fl (80.0-96.0); PLATELET COUNT, AUTOMATED 466 10^3/uL (150-450); RED BLOOD COUNT 4.22 10^6/uL (4.00-5.40); WHITE BLOOD COUNT 12.7 10^3/uL (4.0-10.0)
[2022-04-20 16:51] LABS: ALBUMIN 3.7 G/DL (3.2-5.2); ALKALINE PHOSPHATASE 81 U/L (46-116); ALT/SGPT 40 U/L (7.0-40); AST/SGOT 36 U/L (<34); BILIRUBIN,TOTAL 0.4 MG/DL (0.3-1.2); BLOOD UREA NITROGEN 10 MG/DL (9-23); CARBON DIOXIDE LEVEL 24 MMOL/L (20-31); CHLORIDE LEVEL 106 MMOL/L (98-107); CHOLESTEROL LEVEL 139 MG/DL (<200); CHOLESTEROL RISK RATIO 3.67 (<5); CREATININE FOR GFR 0.48 MG/DL (0.55-1.30); GLOMERULAR FILTRATION RATE > 60.0 (>60); GLUCOSE, FASTING 179 MG/DL (60-100); HDL CHOLESTEROL 37.8 MG/DL (>40); LDL CHOLESTEROL 43.4 MG/DL (<100); MONOCYTES 4 % (0-5); NON-HDL-C 101 MG/DL; POTASSIUM SERUM 4.9 MMOL/L (3.5-5.1); SODIUM LEVEL 137 MMOL/L (136-145); TRIGLYCERIDES LEVEL 289 MG/DL (<150)
[2022-04-20 16:52] LABS: ATYPICAL LYMPH 2 % (0-5); LYMPHOCYTES 34 % (16-44); NEUTROPHILS 59 % (28-66)
[2022-04-20 16:53] LABS: ANISOCYTOSIS 1+; PLATELET CLUMPS SMALL AMT; PLATELET ESTIMATE INCREASED (NORMAL)
[2022-04-20 16:54] LABS: POLYCHROMASIA 2+
[2022-04-20 16:55] LABS: HYPOCHROMASIA 2+
[2022-04-20 16:56] LABS: TEAR DROP CELLS 1+
== END ==
LOC: M LAB REF 16:09
PROVIDERS: ATTEND Nurse Practitioner Family
DX: Z13.228 Encounter for screening for other metabolic disorders (principal)

== ENCOUNTER → 2022-09-30 | Outpatient (REF) | payer MEDICARE, MEDICAID ==
[~2022-09-30] MED LIST changes: +ADDE1TAB20 PO; +MEDR10TA9 PO; +MIDOTAB PO
[2022-09-30 12:30] LABS: HEMATOCRIT 44.6 % (36.0-47.0); MEAN CORPUSCULAR HEMOGLOBIN 27.6 pg (27.0-33.0); MEAN CORPUSCULAR HGB CONC 31.4 g/dl (32.0-36.5); MEAN CORPUSCULAR VOLUME 87.8 fl (80.0-96.0); PLATELET COUNT, AUTOMATED 420 10^3/uL (150-450); RED BLOOD COUNT 5.08 10^6/uL (4.00-5.40)
[2022-09-30 13:04] LABS: ATYPICAL LYMPH 18 % (0-5); BASOPHILS 1 % (0-1); EOSINOPHILS 2 % (0-3); LYMPHOCYTES 31 % (16-44); MONOCYTES 6 % (0-5); NEUTROPHILS 42 % (28-66)
[2022-09-30 13:05] LABS: ALBUMIN 3.9 G/DL (3.2-5.2); ALKALINE PHOSPHATASE 90 U/L (46-116); ALT/SGPT 24 U/L (7.0-40); AST/SGOT < 8 U/L (<34); BILIRUBIN,TOTAL 0.4 MG/DL (0.3-1.2); BLOOD UREA NITROGEN 6 MG/DL (9-23); CALCIUM LEVEL 10.1 MG/DL (8.5-10.1); CARBON DIOXIDE LEVEL 24 MMOL/L (20-31); CHLORIDE LEVEL 106 MMOL/L (98-107); CHOLESTEROL LEVEL 143 MG/DL (<200); CHOLESTEROL RISK RATIO 3.31 (<5); CREATININE FOR GFR 0.59 MG/DL (0.55-1.30); GLOMERULAR FILTRATION RATE > 60.0 (>60); GLUCOSE, FASTING 95 MG/DL (60-100); HDL CHOLESTEROL 43.2 MG/DL (>40); NON-HDL-C 99.8 MG/DL; PLATELET ESTIMATE NORMAL (NORMAL); POTASSIUM SERUM 4.4 MMOL/L (3.5-5.1); SODIUM LEVEL 139 MMOL/L (136-145); THYROID STIMULATING HORMONE 2.411 uIU/ML (0.55-4.78); TOTAL 25(OH) VITAMIN D 52.7 NG/ML (20.0-100.0); TOTAL PROTEIN 7.5 G/DL (5.7-8.2); TRIGLYCERIDES LEVEL 334 MG/DL (<150)
[2022-09-30 13:30] LABS: HEMOGLOBIN A1c 8.3 % (4.0-6.0)
== END ==
LOC: M LAB REF 11:20
PROVIDERS: ATTEND Nurse Practitioner Family
DX: Z13.228 Encounter for screening for other metabolic disorders (principal)

== ENCOUNTER → 2022-10-12 | Outpatient (CLI) | payer MEDICARE, MEDICAID ==
[~2022-10-12] MED LIST changes: +AMPH1TAB2 PO; +IBUP-1022 PO; +OXYC1TAB23 PO
== END ==
LOC: M EKG 17:57
PROVIDERS: ATTEND Internal Medicine
DX: I10 Essential (primary) hypertension (principal)

== ENCOUNTER 2022-10-13 07:28 | Observation (INO) | payer MEDICARE, MEDICAID ==
[~2022-10-13] VITALS: Ht 162.6 cm; Wt 141.2 kg
[2022-10-13] VITALS (8 sets, daily range): BP systolic 113–129; BP diastolic 58–74; TEMP 96.5–99.5; O2SAT 94–98
[~2022-10-13 07:28] MED LIST changes: -AMPH1TAB2 PO; -IBUP-1022 PO; -OXYC1TAB23 PO
[2022-10-13] MEDS ORDERED: LR 1,000 ML IV SCH ×3 (07:55→12:10)
[2022-10-13] MEDS ORDERED: ceFAZolin SOD 1 GM in D5W MINI-BAG PLUS 50 ML IV ONE (07:55)
[2022-10-13] MEDS ORDERED: ceFAZolin SOD 2 GM in IV 1 EA IV ONE (07:55)
[2022-10-13 08:01] LABS: HEMATOCRIT 43.1 % (36.0-47.0); HEMOGLOBIN 13.9 g/dl (12.0-15.5); MEAN CORPUSCULAR HEMOGLOBIN 28.4 pg (27.0-33.0); MEAN CORPUSCULAR HGB CONC 32.3 g/dl (32.0-36.5); PLATELET COUNT, AUTOMATED 429 10^3/uL (150-450); WHITE BLOOD COUNT 17.8 10^3/uL (4.0-10.0)
[2022-10-13] MEDS ORDERED: propofoL 200 MG/20 ML VIAL As Ordered ONE ×2 (08:38→09:53)
[2022-10-13] MEDS ORDERED: ROCURONIUM BROMIDE 50MG/5ML VIAL As Ordered ONE ×2 (08:38→10:32)
[2022-10-13] MEDS ORDERED: LIDOCAINE 2% 100MG/5ML SDV (FOR ANES.) As Ordered ONE (08:38)
[2022-10-13] MEDS ORDERED: fentaNYL 250 MCG/5 ML INJECTION As Ordered ONE (08:39)
[2022-10-13] MEDS ORDERED: MIDAZOLAM INJ 2MG/2ML VIAL As Ordered ONE (08:39)
[2022-10-13] MEDS ORDERED: LACRILUBE (AKWA TEARS) OPHTH OINT 3.5GM As Ordered ONE (09:58)
[2022-10-13] MEDS ORDERED: ACETAMINOPHEN 1000MG 100ML IV BAG As Ordered ONE (11:04)
[2022-10-13] MEDS ORDERED: ONDANSETRON 4MG 2ML VIAL As Ordered ONE (11:22)
[2022-10-13] MEDS ORDERED: METOCLOPRAMIDE INJ 10MG/2ML VIAL As Ordered ONE (11:22)
[2022-10-13] MEDS ORDERED: KETOROLAC 60MG 2ML VIAL As Ordered ONE (11:22)
[2022-10-13] MEDS ORDERED: SUGAMMADEX SODIUM 500 MG/5 ML VIAL (BRIDION) As Ordered ONE (11:23)
[2022-10-13] MEDS ORDERED: HYDROmorphone HCL 2MG/ML 1ML VIAL As Ordered ONE (11:33)
[2022-10-13] MEDS ORDERED: MEPERIDINE 25 MG/ML 1ML VIAL IV PRN (11:40)
[2022-10-13] MEDS ORDERED: fentaNYL 100 MCG/2 ML INJECTION IV PRN (11:40)
[2022-10-13] MEDS ORDERED: HYDROMORPHONE HCL 0.5 MG/ 0.5 ML SYRINGE IV PRN (11:40)
[2022-10-13] MEDS ORDERED: oxyCODONE 5MG TAB PO PRN (11:40)
[2022-10-13] MEDS ORDERED: ONDANSETRON 4MG 2ML VIAL IV PRN ×2 (11:40→12:10)
[2022-10-13] MEDS ORDERED: MORPHINE 2 MG/ML 1ML VIAL IV PRN (12:10)
[2022-10-13] MEDS ORDERED: PERCOCET 5MG/325MG TAB PO PRN (12:10)
[2022-10-13] MEDS ORDERED: ACETAMINOPHEN TAB 650MG DOSE (2X325MG) PO PRN (12:10)
[2022-10-13] MEDS ORDERED: OXYC1TAB23 PO (12:13)
[2022-10-13] MEDS ORDERED: IBUP-1022 PO (12:14)
[2022-10-13] MEDS ORDERED: INSULIN LISPRO (NovoLOG) PER UNIT SC PRN (12:15)
[2022-10-13] MEDS: ADDERALL 5 MG TAB PO SCH (14:00)
[2022-10-13] MEDS ORDERED: AMPH1TAB2 PO (14:36)
[2022-10-13] MEDS ORDERED: HOME MED LIST COMPLETE! XX SCH (14:40)
[2022-10-13] MEDS: KETOROLAC 30 MG/ML 1ML VIAL IV PRN (18:00)
[2022-10-13] MEDS: metFORMIN (GLUCOPHAGE) 500MG TAB PO SCH ×2 (18:00→18:34)
[2022-10-13] MEDS: buPROPion 75 MG TAB PO SCH (21:46)
[2022-10-13] MEDS: DOCUSATE SODIUM 100MG CAPSULE PO SCH (21:46)
[2022-10-14 04:00] VITALS: BP 116/76; TEMP 98; O2SAT 96
[2022-10-14] MEDS: KETOROLAC 30 MG/ML 1ML VIAL IV PRN (04:46)
[2022-10-14] MEDS: ADDERALL 5 MG TAB PO SCH (08:00)
[2022-10-14] MEDS: DOCUSATE SODIUM 100MG CAPSULE PO SCH (08:55)
[2022-10-14] MEDS: buPROPion 75 MG TAB PO SCH (08:55)
[2022-10-14] MEDS: metFORMIN (GLUCOPHAGE) 500MG TAB PO SCH (08:55)
[2022-10-14 09:00] VITALS: BP 131/66; TEMP 97.5; O2SAT 96
== END 2022-10-14 11:40 | disposition home or self-care (01) ==
LOC: M SDC 07:28 → M PED 12:09
PROVIDERS: ADMIT Specialist; ATTEND Specialist
DX: N88.8 Other specified noninflammatory disorders of cervix uteri (principal); N92.0 Excessive and frequent menstruation with regular cycle; G43.909 Migraine, unspecified, not intractable, without status migrainosus; F41.9 Anxiety disorder, unspecified; F31.9 Bipolar disorder, unspecified; K21.9 Gastro-esophageal reflux disease without esophagitis; D64.9 Anemia, unspecified; E11.9 Type 2 diabetes mellitus without complications; Z90.49 Acquired absence of other specified parts of digestive tract; Z87.891 Personal history of nicotine dependence; Z91.048 Other nonmedicinal substance allergy status; Z91.030 Bee allergy status; Z91.040 Latex allergy status; Z88.8 Allergy status to other drugs, medicaments and biological substances; D25.1 Intramural leiomyoma of uterus; D25.0 Submucous leiomyoma of uterus
CPT/HCPCS: 36415; 58571; 81025; 85027; 86850; 86870; 86900; 86901; 88307; 96374; 96376; G0378; J0131; J0665; J0690; J1170; J1815; J1885; J2250; J2405; J2765; J3010; S2900

== ENCOUNTER → 2023-04-18 | Outpatient (REF) | payer MEDICARE, MEDICAID ==
[~2023-04-18] MED LIST changes: +ADDE10TA PO; +AMPH1TAB2 PO; +BUPR150T12 PO; +IBUP-1022 PO; +IBUP1TAB5 PO; +OXYC1TAB23 PO
[2023-04-18 14:30] LABS: BASO # 0.1 10^3/uL (0.0-0.2); BASO % 0.6 % (0.0-1.0); EOS # 0.2 10^3/uL (0.0-0.5); EOS % 1.1 % (0.0-3.0); HEMATOCRIT 43.8 % (36.0-47.0); HEMOGLOBIN 14.1 g/dl (12.0-15.5); LYMPH # 4.7 10^3/uL (1.5-5.0); LYMPH % 27.9 % (24.0-44.0); MEAN CORPUSCULAR HEMOGLOBIN 29.2 pg (27.0-33.0); MEAN CORPUSCULAR HGB CONC 32.2 g/dl (32.0-36.5); MEAN CORPUSCULAR VOLUME 90.7 fl (80.0-96.0); MONO % 6.2 % (2.0-8.0); NEUTROPHILS # 10.7 10^3/uL (1.5-8.5); NEUTROPHILS % 63.8 % (36.0-66.0); PLATELET COUNT, AUTOMATED 461 10^3/uL (150-450); RED BLOOD COUNT 4.83 10^6/uL (4.00-5.40); WHITE BLOOD COUNT 16.7 10^3/uL (4.0-10.0)
[2023-04-18 14:38] LABS: ALBUMIN 3.6 G/DL (3.2-5.2); ALKALINE PHOSPHATASE 81 U/L (46-116); ALT/SGPT 21 U/L (7.0-40); AST/SGOT 14 U/L (<34); BILIRUBIN,TOTAL 0.6 MG/DL (0.3-1.2); BLOOD UREA NITROGEN 9 MG/DL (9-23); CALCIUM LEVEL 9.8 MG/DL (8.5-10.1); CARBON DIOXIDE LEVEL 27 MMOL/L (20-31); CHLORIDE LEVEL 107 MMOL/L (98-107); CHOLESTEROL LEVEL 151 MG/DL (<200); CREATININE FOR GFR 0.68 MG/DL (0.55-1.30); GLOMERULAR FILTRATION RATE > 60.0 (>60); GLUCOSE, FASTING 77 MG/DL (60-100); HDL CHOLESTEROL 44.3 MG/DL (>40); LDL CHOLESTEROL 63.7 MG/DL (<100); MAGNESIUM LEVEL 1.8 MG/DL (1.8-2.4); NON-HDL-C 106.7 MG/DL; POTASSIUM SERUM 4.1 MMOL/L (3.5-5.1); SODIUM LEVEL 138 MMOL/L (136-145); TOTAL PROTEIN 7.2 G/DL (5.7-8.2); TRIGLYCERIDES LEVEL 215 MG/DL (<150)
[2023-04-18 14:42] LABS: THYROID STIMULATING HORMONE 2.944 uIU/ML (0.55-4.78)
[2023-04-18 14:52] LABS: HEMOGLOBIN A1c 5.2 % (4.0-6.0)
== END ==
LOC: M LAB REF 13:45
PROVIDERS: ATTEND Nurse Practitioner Family
DX: Z01.818 Encounter for other preprocedural examination (principal); E66.01 Morbid (severe) obesity due to excess calories; E07.9 Disorder of thyroid, unspecified

== ENCOUNTER → 2023-04-19 | Outpatient (CLI) | payer MEDICARE, MEDICAID | LOC: M RAD 15:38 | PROVIDERS: ATTEND Nurse Practitioner Family | DX: Z01.818 Encounter for other preprocedural examination (principal) ==

== ENCOUNTER 2023-04-29 10:01 | Day surgery (SDC) | payer MEDICARE, MEDICAID ==
[~2023-04-29] VITALS: Ht 162.6 cm; Wt 132.0 kg
[2023-04-29] MEDS ORDERED: LR 1,000 ML IV SCH (10:25)
[2023-04-29] MEDS ORDERED: ROCURONIUM BROMIDE 50MG/5ML VIAL As Ordered ONE (10:29)
[2023-04-29] MEDS ORDERED: SUGAMMADEX SODIUM 500 MG/5 ML VIAL (BRIDION) As Ordered ONE (10:29)
[2023-04-29] MEDS ORDERED: LIDOCAINE 2% 100MG/5ML SDV (FOR ANES.) As Ordered ONE (10:29)
[2023-04-29] MEDS ORDERED: propofoL 200 MG/20 ML VIAL As Ordered ONE (10:29)
[2023-04-29] MEDS ORDERED: fentaNYL 100 MCG/2 ML INJECTION As Ordered ONE (10:34)
[2023-04-29] MEDS ORDERED: MIDAZOLAM INJ 2MG/2ML VIAL As Ordered ONE (10:34)
[2023-04-29] MEDS ORDERED: ACETAMINOPHEN 1000MG 100ML IV BAG As Ordered ONE (11:50)
[2023-04-29] MEDS: LIDOCAINE W/EPINEPHRINE 1% 20ML VIAL As Ordered ONE (12:10)
[2023-04-29] MEDS ORDERED: ONDANSETRON 4MG 2ML VIAL IV PRN (12:35)
[2023-04-29] MEDS ORDERED: fentaNYL 100 MCG/2 ML INJECTION IV PRN (12:35)
[2023-04-29] MEDS: oxyCODONE 5MG TAB PO PRN (13:07)
[2023-04-29] MEDS: MORPHINE 2 MG/ML 1ML VIAL IV PRN (13:07)
[2023-04-29 14:26] VITALS: BP 174/95; TEMP 97; O2SAT 94
== END 2023-04-29 15:05 | disposition home or self-care (01) ==
LOC: M SDC 10:01
PROVIDERS: ATTEND Dentist Oral and Maxillofacial Surgery
DX: K02.9 Dental caries, unspecified (principal); R73.03 Prediabetes; K21.9 Gastro-esophageal reflux disease without esophagitis; F41.9 Anxiety disorder, unspecified; F32.A Depression, unspecified; Z91.040 Latex allergy status; Z91.030 Bee allergy status; Z86.16 Personal history of COVID-19; G43.909 Migraine, unspecified, not intractable, without status migrainosus; Z79.84 Long term (current) use of oral hypoglycemic drugs; Z79.899 Other long term (current) drug therapy
CPT/HCPCS: 41899; 88300; J0131; J1100; J2250; J3010

== ENCOUNTER → 2023-06-08 | Outpatient (REF) | payer MEDICARE, MEDICAID ==
[~2023-06-08] MED LIST changes: +DEXA1TA PO; +MV-M1TAB40 PO; +SLOW142T5 PO
== END ==
LOC: M LABWUC 11:53
PROVIDERS: ATTEND Internal Medicine Hematology & Oncology
DX: I10 Essential (primary) hypertension (principal)

== ENCOUNTER → 2023-12-01 | Outpatient (REF) | payer MEDICARE, MEDICAID ==
[2023-12-01 18:25] LABS: BASO # 0.1 10^3/uL (0.0-0.2); BASO % 0.7 % (0.0-1.0); EOS # 0.3 10^3/uL (0.0-0.5); EOS % 2.3 % (0.0-3.0); HEMATOCRIT 45.6 % (36.0-47.0); HEMOGLOBIN 15.1 g/dl (12.0-15.5); LYMPH # 3.6 10^3/uL (1.5-5.0); LYMPH % 32.6 % (24.0-44.0); MEAN CORPUSCULAR HEMOGLOBIN 29.7 pg (27.0-33.0); MEAN CORPUSCULAR HGB CONC 33.1 g/dl (32.0-36.5); MEAN CORPUSCULAR VOLUME 89.6 fl (80.0-96.0); MONO # 0.7 10^3/uL (0.0-0.8); MONO % 6.4 % (2.0-8.0); NEUTROPHILS # 6.3 10^3/uL (1.5-8.5); NEUTROPHILS % 57.6 % (36.0-66.0); PLATELET COUNT, AUTOMATED 457 10^3/uL (150-450); RED BLOOD COUNT 5.09 10^6/uL (4.00-5.40)
[2023-12-01 19:06] LABS: ALKALINE PHOSPHATASE 85 U/L (46-116); ALT/SGPT 27 U/L (7.0-40); AST/SGOT 15 U/L (<34); BILIRUBIN,TOTAL 0.5 MG/DL (0.3-1.2); BLOOD UREA NITROGEN 9 MG/DL (9-23); CALCIUM LEVEL 9.9 MG/DL (8.5-10.1); CARBON DIOXIDE LEVEL 23 MMOL/L (20-31); CHLORIDE LEVEL 108 MMOL/L (98-107); CHOLESTEROL LEVEL 147 MG/DL (<200); CHOLESTEROL RISK RATIO 3.33 (<5); CREATININE FOR GFR 0.58 MG/DL (0.55-1.30); GLOMERULAR FILTRATION RATE > 60.0 (>58); GLUCOSE, FASTING 91 MG/DL (60-100); HDL CHOLESTEROL 44.1 MG/DL (>40); LDL CHOLESTEROL 53.7 MG/DL (<100); MAGNESIUM LEVEL 1.9 MG/DL (1.8-2.4); NON-HDL-C 102.9 MG/DL; POTASSIUM SERUM 4.8 MMOL/L (3.5-5.1); SODIUM LEVEL 138 MMOL/L (136-145); TOTAL PROTEIN 7.5 G/DL (5.7-8.2); TRIGLYCERIDES LEVEL 246 MG/DL (<150)
[2023-12-01 19:08] LABS: TOTAL 25(OH) VITAMIN D 51.6 NG/ML (20.0-100.0)
== END ==
LOC: M LAB REF 16:27
PROVIDERS: ATTEND Nurse Practitioner Family
DX: E66.01 Morbid (severe) obesity due to excess calories (principal); E55.9 Vitamin D deficiency, unspecified; Z79.899 Other long term (current) drug therapy

== ENCOUNTER → 2024-03-28 | Outpatient (REF) | payer MEDICARE, MEDICAID | LOC: M SFHCDERM 17:29 | PROVIDERS: ATTEND Nurse Practitioner Family | DX: D17.24 Benign lipomatous neoplasm of skin and subcutaneous tissue of left leg (principal) ==

== ENCOUNTER → 2024-04-25 | Outpatient (REF) | payer MEDICARE, MEDICAID ==
[2024-04-26 13:48] LABS: ALBUMIN 3.6 G/DL (3.2-5.2); ALKALINE PHOSPHATASE 72 U/L (35-104); ALT/SGPT 19 U/L (7.0-40); AST/SGOT 13 U/L (<34); BILIRUBIN,TOTAL 0.4 MG/DL (0.3-1.2); BLOOD UREA NITROGEN 12 MG/DL (9-23); CALCIUM LEVEL 9.5 MG/DL (8.5-10.1); CARBON DIOXIDE LEVEL 25 MMOL/L (20-31); CHLORIDE LEVEL 104 MMOL/L (98-107); CHOLESTEROL LEVEL 168 MG/DL (<200); CHOLESTEROL RISK RATIO 3.52 (<5); CREATININE FOR GFR 0.47 MG/DL (0.55-1.30); GLOMERULAR FILTRATION RATE > 60.0 (>58); GLUCOSE, FASTING 80 MG/DL (60-100); HDL CHOLESTEROL 47.6 MG/DL (>40); NON-HDL-C 120.4 MG/DL; POTASSIUM SERUM 4.3 MMOL/L (3.5-5.1); SODIUM LEVEL 138 MMOL/L (136-145); TOTAL PROTEIN 6.9 G/DL (5.7-8.2); TRIGLYCERIDES LEVEL 322 MG/DL (<150)
== END ==
LOC: M LAB REF 13:19
PROVIDERS: ATTEND Nurse Practitioner Family
DX: E11.9 Type 2 diabetes mellitus without complications (principal); E66.01 Morbid (severe) obesity due to excess calories

== ENCOUNTER 2024-10-02 12:22 | Emergency (ER) | payer MEDICARE, MEDICAID ==
[~2024-10-02] VITALS: Ht 162.6 cm; Wt 120.6 kg
[~2024-10-02 12:22] MED LIST changes: +SEMA0.257 SQ
[2024-10-02] MEDS: ONDANSETRON 4MG ORAL DISINTEGRATING TAB PO ONE (14:52)
[2024-10-02 15:01] LABS: BASO # 0.1 10^3/uL (0.0-0.2); BASO % 0.6 % (0.0-1.0); EOS # 0.4 10^3/uL (0.0-0.5); EOS % 3.0 % (0.0-3.0); LYMPH # 4.0 10^3/uL (1.5-5.0); LYMPH % 27.9 % (24.0-44.0); MONO # 0.7 10^3/uL (0.0-0.8); MONO % 5.2 % (2.0-8.0); NEUTROPHILS # 8.9 10^3/uL (1.5-8.5); NEUTROPHILS % 62.9 % (36.0-66.0); PLATELET COUNT, AUTOMATED 379 10^3/uL (150-450)
[2024-10-02 15:38] LABS: ALT/SGPT 18 U/L (7.0-40); AST/SGOT 21 U/L (<34); CALCIUM LEVEL 9.7 MG/DL (8.5-10.1); CARBON DIOXIDE LEVEL 25 MMOL/L (20-31); CHLORIDE LEVEL 107 MMOL/L (98-107); CREATININE FOR GFR 0.60 MG/DL (0.55-1.30); GLOMERULAR FILTRATION RATE > 90.0 (>58); POTASSIUM SERUM 4.8 MMOL/L (3.5-5.1); SODIUM LEVEL 142 MMOL/L (136-145)
[2024-10-02 16:22] VITALS: BP 121/70; TEMP 98.2; O2SAT 98
[2024-10-02] MEDS ORDERED: ANUS2.5C2 TOP (16:33)
== END 2024-10-02 16:44 | disposition home or self-care (01) ==
LOC: M ED 12:22
DX: K64.5 Perianal venous thrombosis (principal); D72.829 Elevated white blood cell count, unspecified; Z91.030 Bee allergy status; Z91.040 Latex allergy status; Z91.048 Other nonmedicinal substance allergy status; Z79.1 Long term (current) use of non-steroidal anti-inflammatories (NSAID); Z79.899 Other long term (current) drug therapy; Z79.4 Long term (current) use of insulin

== ENCOUNTER 2024-11-22 21:59 | Inpatient (IN) | payer MEDICARE, MEDICAID ==
[~2024-11-22] VITALS: Ht 160 cm; Wt 114.0 kg
[~2024-11-22 21:59] MED LIST changes: +ANUS2.5C2 TOP; -IBUP-1022 PO; +IBUP600T42 PO
[2024-11-23 00:15] LABS: PLATELET COUNT, AUTOMATED 386 10^3/uL (150-450)
[2024-11-23 00:28] LABS: AMPHETAMINES LEVEL URINE NEGATIVE (NEGATIVE); BARBITURATES URINE NEGATIVE (NEGATIVE); BENZODIAZEPINES URINE NEGATIVE (NEGATIVE); COCAINE METABOLITE URINE NEGATIVE (NEGATIVE); METHADONE URINE NEGATIVE (NEGATIVE); OPIATES URINE NEGATIVE (NEGATIVE); PHENCYCLIDINE URINE NEGATIVE (NEGATIVE)
[2024-11-23 00:31] LABS: CANNABINOIDS URINE POSITIVE (NEGATIVE)
[2024-11-23 00:32] LABS: ALT/SGPT 21 U/L (7.0-40); AST/SGOT 17 U/L (<34); CALCIUM LEVEL 9.7 MG/DL (8.5-10.1); CARBON DIOXIDE LEVEL 23 MMOL/L (20-31); CHLORIDE LEVEL 106 MMOL/L (98-107); CREATININE FOR GFR 0.67 MG/DL (0.55-1.30); GLOMERULAR FILTRATION RATE > 90.0 (>58); POTASSIUM SERUM 4.1 MMOL/L (3.5-5.1); SALICYLATE LEVEL < 3.0 MG/DL (<30); SODIUM LEVEL 140 MMOL/L (136-145)
[2024-11-23 00:34] LABS: ETHYL ALCOHOL (ETHANOL) < 0.003 % (0.000-0.010)
[2024-11-23] MEDS ORDERED: MAALOX 30 ML SUSP *UDC PO PRN (01:10)
[2024-11-23] MEDS ORDERED: IBUPROFEN 400 MG TAB PO PRN (01:10)
[2024-11-23 02:44] VITALS: BP 158/93; TEMP 96.5; O2SAT 99
[2024-11-23] MEDS: LORazepam 0.5 MG TAB PO ONE (02:54)
[2024-11-23] MEDS: amLODIPine 5 MG TAB PO ONE (13:03)
[2024-11-23] MEDS: OMEPRAZOLE 20MG CAP PO SCH (13:03)
[2024-11-23 17:24] VITALS: BP 156/90; TEMP 98.7; O2SAT 97
[2024-11-23] MEDS: metFORMIN 500 MG TAB PO SCH (17:26)
[2024-11-23 20:07] VITALS: BP 148/74; O2SAT 99
[2024-11-23 21:00] VITALS: BP 136/72
[2024-11-23] MEDS: traZODone 50 MG TAB PO PRN (23:15)
[2024-11-24 06:43] VITALS: BP 148/70; TEMP 97.2; O2SAT 98
[2024-11-24 08:27] VITALS: BP 143/88
[2024-11-24] MEDS: amLODIPine 5 MG TAB PO SCH (08:32)
[2024-11-24] MEDS: FLUZONE VACCINE TRI PF(25-26) 0.5ML SYRINGE IM.IMMUN ONE (08:33)
[2024-11-24] MEDS ORDERED: THERTAB52 PO (09:10)
[2024-11-24] MEDS ORDERED: RISP0.5T82 PO (09:10)
[2024-11-24] MEDS ORDERED: ATIV1TAB10 PO (09:10)
[2024-11-24] MEDS ORDERED: HOME MED LIST COMPLETE! XX SCH (09:15)
[2024-11-24] MEDS: RISPERIDONE 1 MG TAB PO SCH (09:33)
[2024-11-24] MEDS: buPROPion **XL** 150 MG TABLET PO SCH (09:33)
[2024-11-24 14:54] VITALS: BP 137/81; TEMP 98; O2SAT 99
[2024-11-25 06:51] VITALS: BP 128/75; TEMP 97.2; O2SAT 100
[2024-11-25 07:55] VITALS: BP 119/72
[2024-11-25] MEDS: ACETAMINOPHEN 325 MG TAB PO PRN (08:00)
[2024-11-25] MEDS: DEXTROAMPHETAMINE/AMPHETAMINE 5 MG *ER* CAPSULE PO SCH (08:00)
[2024-11-25] MEDS: MOM 30 ML SUSPENSION UDC PO PRN (08:56)
[2024-11-25] MEDS ORDERED: LIDOCAINE 5% PATCH TD SCH (11:30)
[2024-11-25] MEDS: LIDOCAINE 5% PATCH TD SCH (11:59)
[2024-11-25 15:01] VITALS: BP 130/85; TEMP 98.2; O2SAT 97
[2024-11-25] MEDS: HALOPERIDOL 5 MG TAB PO PRN (20:12)
[2024-11-26 06:00] VITALS: BP 113/55; TEMP 97.3; O2SAT 97
[2024-11-26 09:44] VITALS: BP 145/94
[2024-11-26 09:47] VITALS: BP 145/94
[2024-11-26] MEDS ORDERED: AMPH1CAP9 PO (12:53)
[2024-11-26] MEDS ORDERED: OMEP-173 PO (12:53)
[2024-11-26] MEDS ORDERED: AMLO1TAB24 PO (12:53)
[2024-11-26] MEDS ORDERED: TRAZ-252 PO (12:53)
[2024-11-26] MEDS ORDERED: RISP-105 PO (12:53)
[2024-11-26] MEDS ORDERED: BUPR150T12 PO (12:53)
[2024-11-26] MEDS ORDERED: LIDO5TD TD (12:53)
== END 2024-11-26 14:42 | disposition home or self-care (01) | DRG 885 ==
LOC: M ED 21:59 → M ED INP 11-23 01:09 → M PSY 11-23 02:25
PROVIDERS: ADMIT Psychiatry & Neurology Neurology; ATTEND Psychiatry & Neurology Neurology
DX: F25.0 Schizoaffective disorder, bipolar type (principal); Z68.41 Body mass index [BMI] 40.0-44.9, adult; F41.0 Panic disorder [episodic paroxysmal anxiety]; F12.10 Cannabis abuse, uncomplicated; F84.0 Autistic disorder; Z91.030 Bee allergy status; Z91.040 Latex allergy status; Z79.899 Other long term (current) drug therapy; E66.01 Morbid (severe) obesity due to excess calories; E11.9 Type 2 diabetes mellitus without complications; D64.9 Anemia, unspecified; G43.909 Migraine, unspecified, not intractable, without status migrainosus; F90.9 Attention-deficit hyperactivity disorder, unspecified type; K21.9 Gastro-esophageal reflux disease without esophagitis; D72.829 Elevated white blood cell count, unspecified

== ENCOUNTER → 2024-12-10 | Outpatient (REF) | payer MEDICARE, MEDICAID ==
[~2024-12-10] MED LIST changes: +AMLO1TAB24 PO; +AMPH1CAP9 PO; +ATIV1TAB10 PO; +LIDO5TD TD; +OMEP-173 PO; +RISP-105 PO; +RISP0.5T82 PO; +THERTAB52 PO; +TRAZ-252 PO
[2024-12-10 13:49] LABS: Trichomonas vaginalis (AMP) NOT DETECTED (NEGATIVE)
[2024-12-10 14:13] LABS: GC DNA AMPLIFICATION NEGATIVE (NEGATIVE)
[2024-12-10 14:31] LABS: CHOLESTEROL LEVEL 177 MG/DL (<200); CHOLESTEROL RISK RATIO 3.53 (<5); LDL CHOLESTEROL 77.1 MG/DL (<100); NON-HDL-C 126.9 MG/DL; TRIGLYCERIDES LEVEL 249 MG/DL (<150)
[2024-12-10 14:59] LABS: HIV 1&2 SCREEN NEGATIVE (NEGATIVE)
[2024-12-10 15:07] LABS: HEPATITIS C VIRUS ABY INDEX < 0.02 INDEX (<0.8)
[2024-12-10 15:51] LABS: ESTIMATED AVERAGE GLUCOSE 103.0 MG/DL (60-110)
== END ==
LOC: M LAB REF 12:04
PROVIDERS: ATTEND Student in an Organized Health Care Education/Training Program
DX: R10.9 Unspecified abdominal pain (principal); A64 Unspecified sexually transmitted disease; Z68.42 Body mass index [BMI] 45.0-49.9, adult; E03.9 Hypothyroidism, unspecified; Z11.3 Encounter for screening for infections with a predominantly sexual mode of transmission; Z72.89 Other problems related to lifestyle; Z79.899 Other long term (current) drug therapy